=== PATIENT | female | born 1955 | race Caucasian/White ===

== ENCOUNTER 2019-11-16 19:30 | Inpatient (IN) ==
[2019-11-16] MEDS ORDERED: TRAMADOL HCL 50 MG TABLET PO PRN (22:43)
[2019-11-16] MEDS ORDERED: PROMETHAZINE HCL 12.5 MG in SODIUM CHLORIDE 0.9% 50 ML IV PRN (22:43)
[2019-11-16] MEDS ORDERED: MoRPHine SULFATE 4 MG/ML 1 ML CARP\\VIAL IV PRN (22:43)
[2019-11-16] MEDS ORDERED: ACETAMINOPHEN 325 MG TAB PO PRN (22:43)
--- NOTE | 2019-11-16 22:45 | History & Physical Report ---
Date of Service November 16, 2019 Assessment & Plan (1) Choledocholithiasis: No sepsis for now Bronchial asthma, stable disease GMF Hold off on antibiotics for now GI consult RE choledocholithiasis N.p.o. until patient seen by GI May need Surgery consultation during confinement pending GI eval for possible cholecystectomy. DVT prophylaxis. SCDs Full code Text document was generated using [employer] voice recognition software. It may contain grammatical or spelling errors. Kindly contact undersigned for clarification of any documentation item in question. Admission and Anticipated Discharge Date Admission Date: November 16, 2019 History of Present Illness Chief Complaint: Choledocholithiasis Primary Care Provider: Dr. Chapman ([facility]) History obtained from patient and records. Medical history significant for cholelithiasis, asthma/allergic rhinitis. Last night close to midnight patient noted achy epigastric discomfort and increased abdominal distention with nausea, no emesis. Some chills as per patient. Urine noted to be very yellow. No chest pain, no S OB. In retrospect, patient recalls short-lived episode last month. Worsening symptoms today. Patient seen at [facility] emergency room. LFTs noted to be high. CT abdomen pelvis showed choledocholithiasis with CBD dilatation. Patient transferred to [facility] for GI services. 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 Allergies Allergy/AdvReac Type Severity Reaction Status Date / Time egg Allergy Unknown Verified 11/16/19 23:01 Penicillins Allergy Unknown Verified 11/16/19 23:01 tree and shrub pollen AdvReac Unknown Verified 11/16/19 23:02 Past Med/Surg History Surgical History (Updated 11/16/19 @ 22:37 by Loretta Dotson RN) History of endoscopic sinus surgery History of hysterectomy History of tonsillectomy Social History Preferred Language: Cambodian Communication Ability: Effective Breakfast Bar Attendant Required: No Beliefs That Will Affect Care: None Current Living Situation: Alone Other Information That Helps Us Care for You: No Feels Safe at Home: Yes Safety Concerns: Feels Safe At This Time Smoking Status: Never smoker Second Hand Exposure: No ; Tobacco Cessation E ducation Requested by Patient: No Hx Alcohol Use: No Hx Substance Use: No Review of Systems Review of Systems: As per HPI, all 10 systems reviewed, all other ROS negative Physical Exam Physical Exam: GENERAL: Comfortable, pleasant, looks younger for stated age, no respiratory distress SKIN: Normal color, warm HEENT: Velarde palpebral conjunctivae, no ptosis, dry buccal mucosa NECK : Supple, no tenderness CHEST : CTA, no tenderness HEART : RRR, no obvious murmurs ABDOMEN: Abdominal distention, minimal epigastric tenderness EXTREMITIES : No LE swelling/tenderness, no other conspicuous deformities noted NEUROLOGIC : Coherent, no facial asymmetry, no other gross focality Results & Data Results & Data ([facility]) Vital Signs (Past 12 Hours) Vital Signs Temp Pulse Resp BP Pulse Ox 11/16/19 22:15 36.8 C 80 18 113/73 99 Laboratory Results ROSIO Zazueta lab work 11/15 Hemoglobin 13.3, hematocrit 38.6, WBC 7, platelets 307 Sodium 142, potassium 4.2, chloride 110, CO2 27, BUN 10, creatinine 0.08, glucose 108 Lactic acid 1.2, AST 1459, ALT 1037, alk phos 159, lipase 116, total bilirubin 2.6 UA: Yellow, bilirubin +1, negative ketones, +1 urobilinogen, WBC 0-1, RBC 3-10 Diagnostic Findings ROSIO Zazueta (11/15) CT abdomen pelvis: Cholelithiasis with top normal to mildly dilated CBD w 4 mm calculus. Periportal lucency within liver which can be seen with passive hepatic congestion, hepatitis, cholangitis. Small hepatic cysts. Sigmoid diverticulosis without diverticulitis EKG as per my interpretation: Rate 60, NSR, LAD, LAFB, no ischemia.
[2019-11-16] MEDS ORDERED: ALBUT/IPRATROP 3MG/0.5MG NEB 3 ML VIAL NEB PRN (22:53)
[2019-11-16] MEDS: LACTATED RINGER'S 1,000 ML IV SCH (22:59)
[2019-11-17 05:38] LABS: Basophils # (auto) 0.01 K/uL (0-0.2); Basophils % (auto) 0.2 %; Eosinophils # (auto) 0.05 K/uL (0-0.5); Eosinophils % (auto) 1.1 %; Hematocrit (blood only) 36.5 % (37-47); Hemoglobin 12.8 g/dL (12.0-16.0); Immature Granulocytes # (auto) 0.01 K/uL (0.00-0.02); Immature Granulocytes % (auto) 0.2 %; Lymphocytes # (auto) 0.89 K/uL (1.2-3.4); Mean Corpuscular Hemoglobin 28.4 pg (25-34); Mean Corpuscular Hgb Conc 35.1 g/dL (32-36); Mean Corpuscular Volume 80.9 fL (80-100); Mean Platelet Volume 9.5 fL (7.4-10.4); Monocytes # (auto) 0.23 K/uL (0.11-0.59); Monocytes % (auto) 5.2 %; Neutrophils # (auto) 3.27 K/uL (1.4-6.5); Neutrophils % (auto) 73.3 %; Platelet Count 298 K/uL (130-400); RDW Coefficient of Variation 14.7 % (11.5-14.5); RDW Standard Deviation 43.4 fL (36.4-46.3); Red Blood Count 4.51 M/uL (4.2-5.4); White Blood Count 4.46 K/uL (4.8-10.8)
[2019-11-17 06:04] LABS: Albumin Level 3.2 gm/dl (3.4-5.0); BUN Creatinine Ratio 8.5 (10-20); Calcium 8.9 mg/dl (8.5-10.1); Creatinine Clr Calc Pharmacy 69.4 ml/min; Est GFR (African American) 110.3; Est GFR (Non-African American) 95.1; Potassium 3.9 mmol/L (3.5-5.1); Prothrombin Time 10.9 Seconds (9.0-12.0)
[2019-11-17 06:07] LABS: Albumin Globulin Ratio 1.1 (0.9-2); Bilirubin,Total 0.5 mg/dl (0.2-1); Total Protein 6.2 gm/dl (6.4-8.2)
[2019-11-17] MEDS ORDERED: INDOMETHACIN 50 MG SUPP PR SCH (08:16)
--- NOTE | 2019-11-17 08:50 | Gastrointestinal Consultation ---
Date of Consultation November 17, 2019 Assessment & Plan (1) Choledocholithiasis: (2) Cholelithiasis: Pt is a 63 y/o female transferred from [facility] w symptoms of chills, nausea, abd discomfort & bloating; upon eval noted to have elevated LFTs and CT evidence of cholelithiasis, choledocholithiasis w intrahepatic and CBD dilations. - Keep NPO; IVF hydration - Plan for ERCP in OR by Dr. Sherman today - Indomethacin 100mg ND pre med to prevent pancreatitis - Surgery Consulted (spoke w Dr. Sweeney) to eval for possible cholecystectomy tandem in OR after ERCP procedure Supervising Physician Co-Signing Physician Notes I performed a history and physical examination of the patient today, including specifically on physical exam - soft abdomen. I have discussed the patient's management with the advanced practitioner. Please refer to the nurse practitioner's note for the documented findings and plan of care. Patient with choledocholithiasis and suspected cholangitis. Urgent case. ERCP today. History of Present Illness Reason for Consultation: Choledocholithiasis Requesting Physician: Dr. Glen Alvarez Attending Physician: Dr. Michelle Sherman History of Present Illness Pt is a 63 y/o female, transferred from [facility] for ERCP evaluation. She presented there w symptoms of chills, abd discomfort, bloating, nausea w/o vomiting. She denies any fevers. On evaluation, noted LFTs were up: Tbili 2.6, AST 1400, ALT 1000, Alk phose 157. Normal lipase and lactic acid. CT abd/pelvis w signs of cholelithiasis, choledocholithasis - 4mm CBD stone w intrahepatic, CBD dilation of 7mm. She was transferred to [facility] for further eval and advancement of care. She remains afebrile and w/o leukocytosis, not hypotensive or tachycardic. Abd discomfort and nausea improved. Denies dark urine or jaundi ce. Last BM yesterday, black per her report. Repeat LFTs: Tbili 0.5, AST 578, ALT 786, Alk phose 150. Allergies Allergy/AdvReac Type Severity Reaction Status Date / Time egg Allergy Unknown Verified 11/16/19 23:01 Penicillins Allergy Unknown Verified 11/16/19 23:01 tree and shrub pollen AdvReac Unknown Verified 11/16/19 23:02 Patient History Medical History (Updated 11/17/19 @ 09:20 by Lucio Olivares DO) Asthma Surgical History History of endoscopic sinus surgery History of hysterectomy History of tonsillectomy Social History Preferred Language: Romansh Communication Ability: Effective Manager Clinical Required: No Beliefs That Will Affect Care: None Current Living Situation: Alone Other Information That Helps Us Care for You: No Feels Safe at Home: Yes Safety Concerns: Feels Safe At This Time Smoking Status: Never smoker Second Hand Exposure: No ; Tobacco Cessation Education Requested by Patient: No Hx Alcohol Use: No Hx Substance Use: No Review of Systems Review of Systems: All systems reviewed & are unremarkable except as noted in HPI & below Physical Exam Constitutional: WD/WN, vitals as above well groomed, cooperative and comfortable Eyes: PERRL, conjunctivae normal, anicteric sclerae ENMT: external ear and nose normal, oropharynx normal Respiratory: normal respiratory effort, lungs clear to auscultation Cardiovascular: RRR, no murmur, no edema Gastrointestinal (Abdomen): Inspection/Auscultation: normal bowel sounds Percussion/Palpation: + abdomen tender (generalized) and abdomen soft Skin: no rashes, warm and dry no jaundice Psychiatric: A+Ox3, euthymic affect Lymphatic: no lymphedema Results & Data ([facility]) Vital Signs (Past 12 Hours) Vital Signs Temp Pulse Pulse Resp BP Pulse Ox 11/17/19 07:54 36.6 C 71 18 110/72 96 11/16/19 23:30 36.5 C 73 16 117/75 99 11/16/19 22:15 36.8 C 80 18 113/73 99
[2019-11-17] MEDS ORDERED: ONDANSETRON INJ 2 MG/ML 2 ML VIAL ONE (09:02)
[2019-11-17] MEDS ORDERED: DEXAMETHASONE SOD INJ 4 MG/ML VIAL ONE (09:02)
[2019-11-17] MEDS ORDERED: PROPOFOL IV EMULSION 10 MG/ML 20 ML VIAL IV ONE (09:02)
[2019-11-17] MEDS ORDERED: LIDOCAINE HCL 2% 2 ML VIAL/AMP(20MG/ML) INFIL ONE (09:02)
[2019-11-17] MEDS ORDERED: fentaNYL citrate 100 MCG/2 ML VIAL ONE (09:03)
[2019-11-17] MEDS ORDERED: ePHEDrine sulfate 50 MG/ML AMP IV PRN (09:03)
[2019-11-17] MEDS ORDERED: fentaNYL citrate 100 MCG/2 ML VIAL IV PRN (09:03)
[2019-11-17] MEDS ORDERED: ATROPINE SULFATE 0.1 MG/ML 10ML SYR IV PRN (09:03)
[2019-11-17] MEDS ORDERED: ONDANSETRON INJ 2 MG/ML 2 ML VIAL IV PRN (09:03)
[2019-11-17] MEDS ORDERED: MIDAZOLAM HCL 1 MG/ML 2ML VIAL ONE (09:03)
--- NOTE | 2019-11-17 09:03 | Anesthesiology Consultation ---
Date of Service November 17, 2019 Assessment & Plan (1) Encounter for pre-operative examination: Chart Review Chart Review: Acceptable Risk for Surgery Consults Requested none ASA ASA2 Proposed Anesthesia Anesthesia Type: General Risk / Benefits Reviewed With: PT / POA / Parent / Guardian, Accepts Plan and Informed Consent Obtained History Surgery Operation Date: 11/17/19 07:00 Proposed Procedures p Endoscopic Retrograde Cholangiopancreatogram - Michelle Sherman MD Height/Weight Height: 5 ft 1 in Weight: 56.2 kg Allergies Allergy/AdvReac Type Severity Reaction Status Date / Time egg Allergy Unknown Verified 11/16/19 23:01 Penicillins Allergy Unknown Verified 11/16/19 23:01 tree and shrub pollen AdvReac Unknown Verified 11/16/19 23:02 Medications Active Medications Generic Name Dose Route Start Last Admin Trade Name Freq PRN Reason Stop Dose Admin Lactated Ringer's 1,000 mls @ 80 mls/hr 11/16/19 23:00 11/16/19 22:59 Lr IV 12/16/19 22:59 80 mls/hr .[id number] KRISTEN Administration NPO Date Last Intake of Fluids: 11/16/19 Time Last Intake of Fluids: 11:59 Date Last Intake of Solids: 11/16/19 Time Last Intake of Solids: 11:59 Past Medical History Medical History (Updated 11/17/19 @ 09:20 by Lucio Olivares DO) Asthma Exercise / Class Metabolic Activity II 4-5 Yardwork/Stairs/Walk up hill Past Surgical History Surgical History History of endoscopic sinus surgery History of hysterectomy History of tonsillectomy Past Anesthesia History No Hx of Anesthesia Complications and No Family Hx of Anesthesia Complications History of PONV No Hx of PONV and No Hx of Motion Sickness Social History Smoking Status: Never smoker Hx Alcohol Use: No Hx Substance Use: No Physical Exam Vital Signs Last Vital Signs Temp 98.1 F 11/17/19 09:08 Pulse 62 11/17/19 09:08 Resp 16 11/17/19 09:08 BP 118/60 11/17/19 09:08 Pulse Ox 98 11/17/19 09:08 ENMT Mouth: + loose teeth Thyromental Distance: > or= 3.5 Finger Breadths Mallampati Class: III Neck normal visual inspection Respiratory normal respiratory effort Auscultation: lungs clear to auscultation bilaterally Cardiovascular Rate/Rhythm: regular rate and regular rhythm Testing Laboratory Results 11/17/19 05:08 11/17/19 05:08 PT 10.9 Seconds (9.0-12.0) 11/17/19 05:08 INR 1.0 (0.9-1.1) 11/17/19 05:08 Electrocardiogram Date: 11/16/19 Rate 60, NSR, LAD, LAFB, no ischemia (per hospitalist)
--- NOTE | 2019-11-17 09:32 | Hospitalist Progress Note ---
Date of Service November 17, 2019 Assessment & Plan (1) Choledocholithiasis: No sepsis on admission, Abx were not started GI consulted RE choledocholithiasis Pt is now s/p ERCP w/choledocholithiasis removal, biliary sphincterectomy, placements of biliary and pancreatic stents (11/17/2019) Tolerated procedure well - trend LFTs - KUB in 3-4 weeks to check for pancreatic stent migration (ordered under [facility] system) - Repeat ERCP in 2 month's time to remove biliary stent (GI schedulers will contact her) - Avoid NSAIDs or ASA 5 days after biliary sphincterectomy General surgery consulted for lap cholecystectomy (Dr. Sweeney). Bronchial asthma - stable disease - pt is in noresp. distress - will cont. to monitor DVT prophylaxis. SCDs Full code Admission and Anticipated Discharge Date Admission Date: November 16, 2019 Subjective Pt is a 63 y/o female transferred from [facility] there significant for elevated LFTs and CT evidence of cholelithiasis, choledocholithiasis w intrahepatic and CBD dilations, concern for cholangitis. GI was consulted and evaluate the patient. Patient is sitting up in bed, in no acute distress. She is now s/p ERCP w/ choledocholithiasis removal, biliary sphincterectomy, placements of biliary and pancreatic stents. Currently denies any fevers, chills, chest pain, shortness of breath, she has mild epigastric and right upper quadrant abdominal pain (says it is much improved now). Denies any nausea or vomiting. Review of Systems Review of Systems: All systems reviewed & are unremarkable except as noted in HPI & below Constitutional: no fever and no chills Respiratory: no cough and no dyspnea Cardiovascular: no chest pain, no palpitations and no edema Gastrointestinal: + abdominal pain (much improved); no nausea and no vomiting Physical Exam Physical Exam: GENERAL: Elderly female, appears younger than stated age, sitting up in bed, in no acute distress HEENT: Normocephalic, atraumatic, EOMI, PERRL, moist mucous membranes NECK : Supple, no tenderness CHEST : CTAB, no wheezing, rhonchi or crackles HEART : RRR, no obvious murmurs ABDOMEN: + bowel sounds, mild epigastric/ RUQ tenderness to palpation, soft EXTREMITIES : No LE swelling/tenderness, moves all extremities spontaneously SKIN: warm, dry, well perfused NEUROLOGIC : Alert and oriented x3, speech fluent, no facial asymmetry, moves all extremities spontaneously Results & Data Results & Data ([facility]) Vital Signs (Past 12 Hours) Vital Signs Temp Pulse Pulse Resp BP Pulse Ox 11/17/19 09:08 36.7 C 62 16 118/60 98 11/17/19 07:54 36.6 C 71 18 110/72 96 11/16/19 23:30 36.5 C 73 16 117/75 99 11/16/19 22:15 36.8 C 80 18 113/73 99 Laboratory Results 11/17/19 11/17/19 11/17/19 Range/Units 05:08 05:08 05:08 WBC 4.46 L (4.8-10.8) K/uL RBC 4.51 (4.2-5.4) M/uL Hgb 12.8 (12.0-16.0) g/dL Hct 36.5 L (37-47) % MCV 80.9 (80-100) fL MCH 28.4 (25-34) pg MCHC 35.1 (32-36) g/dL RDW Std Deviation 43.4 (36.4-46.3) fL RDW Coeff of Frank 14.7 H (11.5-14.5) % Plt Count 298 (130-400) K/uL MPV 9.5 (7.4-10.4) fL Immature Gran % (Auto) 0.2 % Neut % (Auto) 73.3 % Lymph % (Auto) 20.0 % [place] % (Auto) 5.2 % Eos % (Auto) 1.1 % Baso % (Auto) 0.2 % Immature Gran # (Auto) 0.01 (0.00-0.02) K/uL Neut # (Auto) 3.27 (1.4-6.5) K/uL Lymph # (Auto) 0.89 L (1.2-3.4) K/uL [place] # (Auto) 0.23 (0.11-0.59) K/uL Eos # (Auto) 0.05 (0-0.5) K/uL Baso # (Auto) 0.01 (0-0.2) K/uL PT 10.9 (9.0-12.0) Seconds INR 1.0 (0.9-1.1) Sodium 142 (136-145) mmol/L Potassium 3.9 (3.5-5.1) mmol/L Chloride 111 H (98-107) mmol/L Carbon Dioxide 24 (21-32) mmol/L Anion Gap 7.0 (3-11) BUN 5 L (7-18) mg/dl Creatinine 0.61 (0.6-1.2) mg/dl Est Cr Clr Drug Dosing 69.4 ml/min Est GFR ( Amer) 110.3 Est GFR (Non-Af Amer) 95.1 BUN/Creatinine Ratio 8.5 L (10-20) Glucose 91 (70-99) mg/dl Calcium 8.9 (8.5-10.1) mg/dl Total Bilirubin 0.5 (0.2-1) mg/dl AST 578 H (15-37) U/L ALT 786 H (12-78) U/L Alkaline Phosphatase 150 H (45-117) U/L Total Protein 6.2 L (6.4-8.2) gm/dl Albumin 3.2 L (3.4-5.0) gm/dl Globulin 3.0 (2.5-4.0) gm/dl Albumin/Globulin Ratio 1.1 (0.9-2) Medications Administered Current Inpatient Medications Acetaminophen (Tylenol) 325 mg PO Q6H PRN PRN Reason: Mild Pain Stop: 12/16/19 22:42 Albuterol (Duoneb) 3 ml NEB Q2H PRN PRN Reason: Wheezing Stop: 12/16/19 22:52 Atropine Sulfate (Atropine Sulfate) 0.5 mg IV Q1M PRN PRN Reason: PACU Use-HR<40 &/or Bradycardi Stop: 11/17/19 17:03 Ephedrine Sulfate (Ephedrine Sulfate) 5 mg IV Q5M PRN PRN Reason: PACU Use Only-SBP<90 mmHg Stop: 11/17/19 17:03 Fentanyl Citrate (Fentanyl Citrate) 25 mcg IV Q5M PRN PRN Reason: PACU Use Only-Pain Stop: 11/17/19 17:03 Fluticasone Propionate (Flonase) 2 sprays NA DAILY KRISTEN Stop: 12/17/19 08:59 Promethazine HCl 12.5 mg/ (Sodium Chloride) 50.5 mls @ 202 mls/hr IV Q6H PRN PRN Reason: Nausea And Vomiting Stop: 12/16/19 22:42 Lactated Ringer's (Lr) 1,000 mls @ 80 mls/hr IV .[id number] [facility] Stop: 12/16/19 22:59 Last Admin: 11/16/19 22:59 Dose: 80 mls/hr Documented by: Indomethacin (Indocin) 100 mg MA TODAY@0816 [facility] Stop: 11/17/19 15:00 Morphine Sulfate (Morphine Sulfate) 4 mg IV Q4H PRN PRN Reason: Pain Stop: 11/30/19 22:42 Multivitamins (Multivitamin Tab) 1 tab PO QAM [facility] Stop: 12/17/19 08:59 Ondansetron HCl (Zofran) 4 mg IV ONCE PRN PRN Reason: PACU Use Only-Nausea/Vomiting Stop: 11/17/19 17:03 Tramadol HCl (Ultram) 25 - 50 mg PO Q4H PRN PRN Reason: Pain Stop: 12/16/19 22:42
[2019-11-17] MEDS: FLUTICASONE PROPIONATE NA SPR 16 GM BTL SCH (09:37)
[2019-11-17] MEDS: MULTIVITAMIN TAB PO SCH (09:37)
[2019-11-17] MEDS ORDERED: SUCCINYLCHOLINE CHLORIDE 20 MG/ML 10 ML VIAL ONE (10:07)
[2019-11-17] MEDS ORDERED: INDOMETHACIN 50 MG SUPP PR PRN (10:23)
--- NOTE | 2019-11-17 10:25 | Operative Report ---
Post Operative Report Pre & Post Diagnosis Operation Date: 11/17/19 07:00 Pre-Op Diagnosis: GALLSTONES, ELEVATED LIVER EMZYMES Post-Op Diagnosis: GALLSTONES, ELEVATED LIVER EMZYMES I identified the patient and participated in the time-out.: Yes Procedure Operation Date: 11/17/19 07:00 Actual Procedures p Endoscopic Retrograde Cholangiopancreatogram(Not Applicable) - Michelle Sherman MD Surgeon Michelle Sherman MD Asphalt Machine Operator None Estimated Blood Loss 0 Findings See Below (CBD stone removed, CBD and PD stent placed) Specimens None Description of Procedure ERCP I attest to the content of the Intraoperative Record and any orders documented therein. Any exceptions are noted below.
--- NOTE | 2019-11-17 10:44 | Fluoroscopy Report ---
FL ERCP biliary ductal CLINICAL HISTORY: ERCP COMPARISON STUDY: Abdomen and pelvis CT 11/16/2019. FLUOROSCOPY TIME: 1 minute and 21 seconds. FINDINGS: 11 fluoroscopic spot images of the right upper quadrant demonstrate an endoscope at the sec ond portion of the duodenum with cannulation of the ampulla. Contrast was injected into the mildly di stended common bile duct. Filling defect within the common hepatic duct favors a stone. A balloon swe ep was performed. No additional filling defects identified. A common bile duct and main pancreatic du ct stents were placed and appear good position. Multiple small gallstones are noted. IMPRESSION: Fluoroscopy provided for ERCP with placement of common bile duct and main pancreatic duct stents. These appear in good position. ACT 112: Negative or not required by law. Electronically signed by: Amadeo Childs M.D. 11/17/2019 10:43 AM
--- NOTE | 2019-11-17 10:51 | GI REPORT ---
Patient Name: Roque Olsen Procedure Date: 11/17/2019 9:14 AM Date of : 1955 Admit Type: Inpatient Age: 63 Gender: Female Attending MD: Michelle Sherman MD Procedure: ERCP Providers: Michelle Sherman MD Referring MD: Lokesh Cintron M.d., Glen Alvarez Md, Jessica Deluna Md Indications: Abdominal pain of suspected biliary origin, Bile duct stone on Ultrasound, For therapy of bile duct stone(s), Elevated liver enzymes Medicines: Propofol per Anesthesia Complications: No immediate complications. Estimated Blood Loss: Estimated blood loss: none. Procedure: Pre-Anesthesia Assessment: - Prior to the procedure, a History and Physical was performed, and patient medications, allergies and sensitivities were reviewed. The patient's tolerance of previous anesthesia was reviewed. - The risks and benefits of the procedure and the sedation options and risks were discussed with the patient. All questions were answered and informed consent was obtained. - Patient identification and proposed procedure were verified prior to the procedure by the physician and the nurse. The procedure was verified in the procedure room. - Pre-procedure physical examination revealed no contraindications to sedation. After obtaining informed consent, the scope was passed under direct vision. Throughout the procedure, the patient's blood pressure, pulse, and oxygen saturations were monitored continuously. The Scope was introduced through the mouth, and advanced to the duodenum and used to inject contrast into the bile duct. The ERCP was accomplished without difficulty. The patient tolerated the procedure well. Findings: The public health policy analyst film was normal. The esophagus was successfully intubated under direct vision. The scope was advanced to a normal major papilla in the descending duodenum without detailed examination of the pharynx, larynx and associated structures, and upper GI tract. The upper GI tract was grossly normal. The major papilla was small and appeared stenotic. The ventral pancreatic duct was inadvertently cannulated with the short-nosed traction sphincterotome and guidewire without any complications. The wire was kept in place to assist in biliary ductal cannulation. After multiple attempts, could not cannulate with double wire technique hence a transpancreatic septotomy was made with a monofilament Fusion OMNI sphincterotome using ERBE electrocautery. There was no post-sphincterotomy bleeding. A 0.035 inch straight standard wire was passed into the biliary tree. The Fusion OMNI sphincterotome was passed over the guidewire and the bile duct was then deeply cannulated. Contrast was injected. I personally interpreted the bile duct images. Ductal flow of contrast was adequate. Image quality was adequate. Contrast extended to the main bile duct. The biliary orifice was stenotic. This appeared benign. The main bile duct was mildly dilated. The largest diameter was 10 mm. The lower third of the main bile duct contained one stone. Opacification of the cystic duct and gallbladder was seen. The gallbladder contained multiple stones. There was mild external compression on the upper third of the main bile duct related to the large gallstones in the gallbladder neck. The biliary sphincterotomy was extended with a monofilament traction (standard) sphincterotome using ERBE electrocautery. There was no post-sphincterotomy bleeding. The biliary tree was swept with a 15 mm balloon starting at the bifurcation. Two stones were removed. No stones remained. One 5 Fr by 9 cm plastic pancreatic stent with a single external pigtail and no internal flaps was placed into the ventral pancreatic duct. Clear fluid flowed through the stent. The stent was in good position. One 10 Fr by 9 cm plastic biliary stent with a single external flap and a single internal flap was placed into the common bile duct and extended up to the common hepatic duct. Bile flowed through the stent. The stent was in good position. Indomethacin 100 mg was given via suppository to decrease the risk of post-ERCP pancreatitis (PEP). Impression: - Choledocholithiasis was found. Complete removal was accomplished by biliary sphincterotomy and balloon extraction. 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 - One plastic pancreatic stent was placed into the ventral pancreatic duct to decrease the risk of post-ERCP pancreatitis (PEP). - One plastic biliary stent was placed into the common bile duct and extended to the common hepatic duct. Recommendation: - [facility]. - Avoid aspirin and nonsteroidal anti-inflammatory medicines for 5 days. - Refer to a surgery for cholecystectomy.. - Repeat ERCP in 2 months to remove stent. - Obtain KUB in 3 weeks to check for migration of the PD stent. Michelle Sherman MD 11/17/2019 10:50:54 AM This report has been signed electronically. Note Initiated On: 11/17/2019 9:14 AM Number of Addenda: 0 I attest to the content of the Intraoperative Record and orders documented therein, exceptions below {[id number]}
[2019-11-17] MEDS: CIPROFLOXACIN / D5W 400 MG/200 ML BAG IV SCH ×2 (11:40→22:02)
[2019-11-17] MEDS: LACTATED RINGER'S 1,000 ML IV SCH ×2 (11:40→23:21)
--- NOTE | 2019-11-17 11:47 | Anesthesiology Progress Note ---
Date of Service November 17, 2019 Anesthesia Post Procedure Vital Signs Vital Signs: Temp Pulse Pulse Pulse Resp BP Pulse Ox 11/17/19 11:26 97.7 F 64 16 147/75 H 96 11/17/19 11:10 97.5 F L 63 16 150/73 H 95 11/17/19 11:00 68 16 144/80 H 96 11/17/19 10:54 97.2 F L 83 16 152/85 H 98 11/17/19 09:08 98.1 F 62 16 118/60 98 11/17/19 07:54 97.9 F 71 18 110/72 96 11/16/19 23:30 97.7 F 73 16 117/75 99 11/16/19 22:15 98.2 F 80 18 113/73 99 Pain Intensity Abdomen: Pain Intensity: 3 Transfer of Care Handoff Completed per policy Notes Mental Status: alert / awake / arousable and participated in evaluation Patient Amnestic to Procedure: Yes Nausea / Vomiting: adequately controlled Pain: adequately controlled Airway Patency, RR, SpO2: stable & adequate BP & HR: stable & adequate Hydration State: stable & adequate Anesthetic Complications: no major complications apparent and Pt Satisfied with anesthetic care
--- NOTE | 2019-11-17 16:51 | Surgery Consultation ---
Date of Consultation November 17, 2019 Assessment & Plan (1) Cholelithiasis: pt is a 63 year-old female who was admitted to hospital for choledocholithiasis, acute cholecystitis with cholelithiasis, IMP: S/P ERCP, choledocholithiasis, acute cholecystitis, , cholelithiasis, Plan, I recommend to do laparoscopic cholecystectomy, possible open or cholangiogram, at 11:40am 11/18/2019, D/W benefits, risks and alternatives of the surgery, the risks - infection, bleeding, injury CBD, pt understood, she agrees with the surgery, I answered all questions, clear diet now, NPO after MN, (2) Acute cholecystitis due to biliary calculus: History of Present Illness Attending Physician: Glen Alvarez MD History of Present Illness Chief Complaint: Choledocholithiasis Primary Care Provider: Dr. Chapman ([facility]) History obtained from patient and records. Medical history significant for cholelithiasis, asthma/allergic rhinitis. Last night close to midnight patient noted achy epigastric discomfort and increased abdominal distention with nausea, no emesis. Some chills as per patient. Urine noted to be very yellow. No chest pain, no S OB. In retrospect, patient recalls short-lived episode last month. Worsening symptoms today. Patient seen at [facility] emergency room. LFTs noted to be high. CT abdomen pelvis showed choledocholithiasis with CBD dilatation. Patient transferred to [facility] for GI services. 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 Allergies Allergy/AdvReac Type Severity Reaction Status Date / Time egg Allergy Unknown Verified 11/16/19 23:01 Penicillins Allergy Unknown Verified 11/16/19 23:01 tree and shrub pollen AdvReac Unknown Verified 11/16/19 23:02 Past Med/Surg History Surgical History (Updated 11/16/19 @ 22:37 by Loretta Dotson RN) History of endoscopic sinus surgery History of hysterectomy History of tonsillectomy Social History Preferred Language: Guatemalan Communication Ability: Effective Marketing Account Executive Required: No Beliefs That Will Affect Care: None Current Living Situation: Alone Other Information That Helps Us Care for You: No Feels Safe at Home: Yes Safety Concerns: Feels Safe At This Time Smoking Status: Never smoker Second Hand Exposure: No ; Tobacco Cessation Education Requested by Patient: No Hx Alcohol Use: No Hx Substance Use: No Allergies Allergy/AdvReac Type Severity Reaction Status Date / Time egg Allergy Unknown Verified 11/16/19 23:01 Penicillins Allergy Unknown Verified 11/16/19 23:01 tree and shrub pollen AdvReac Unknown Verified 11/16/19 23:02 Patient History Medical History (Updated 11/17/19 @ 16:53 by Ranjith Sweeney MD) Asthma Surgical History History of endoscopic sinus surgery History of hysterectomy History of tonsillectomy Social History Preferred Language: Guatemalan Communication Ability: Effective Marketing Account Executive Required: No Beliefs That Will Affect Care: None Current Living Situation: Alone Other Information That Helps Us Care for You: No Feels Safe at Home: Yes Safety Concerns: Feels Safe At This Time Smoking Status: Never smoker Second Hand Exposure: No ; Tobacco Cessation Education Requested by Patient: No Hx Alcohol Use: No Hx Substance Use: No Review of Systems Review of Systems: All systems reviewed & are unremarkable except as noted in HPI & below Constitutional: as per Subjective / HPI Eyes: as per Subjective / HPI Ear, Nose, Mouth, Throat: as per Subjective / HPI Respiratory: as per Subjective / HPI Cardiovascular: as per Subjective / HPI Gastrointestinal: as per Subjective / HPI gallstone Genitourinary: as per Subjective / HPI Musculoskeletal: as per Subjective / HPI Integumentary: as per Subjective / HPI Neurologic: as per Subjective / HPI Psychiatric: as per Subjective / HPI Endocrine: as per Subjective / HPI Hematologic / Lymphatic: as per Subjective / HPI Physical Exam Constitutional: WD/WN, vitals as above well developed and well nourished Eyes: PERRL, conjunctivae normal, anicteric sclerae ENMT: external ear and nose normal, oropharynx normal Neck: trachea midline, no thyromegaly Respiratory: normal respiratory effort, lungs clear to auscultation normal respiratory effort Cardiovascular: RRR, no murmur, no edema Rate/Rhythm: regular rate and regular rhythm Heart Sounds: normal S1 and normal S2 Gastrointestinal (Abdomen): normal bowel sounds, soft, nontender, no hepatosplenomegaly Percussion/Palpation: + abdomen tender and abdomen soft mild tenderness at RUQ, no distend, no rebound pain, Musculoskeletal: no cyanosis or clubbing, extremities motor strength 5/5 Skin: no rashes, warm and dry Neurologic: patellar DTR's 2+ bilat, sensation intact Psychiatric: Orientation: alert and oriented x 3 Results & Data Vital Signs (Past 12 Hours) Vital Signs Temp Pulse Pulse Resp BP Pulse Ox 11/17/19 15:20 36.3 C L 60 16 113/67 96 11/17/19 14:40 36.5 C 61 18 110/66 97 11/17/19 13:23 66 18 121/67 98 11/17/19 12:23 36.5 C 58 L 18 120/70 94 11/17/19 11:55 36.4 C L 61 16 113/68 95 11/17/19 11:26 36.5 C 64 16 147/75 H 96 11/17/19 11:10 36.4 C L 63 16 150/73 H 95 11/17/19 11:00 68 16 144/80 H 96 11/17/19 10:54 36.2 C L 83 16 152/85 H 98 11/17/19 09:08 36.7 C 62 16 118/60 98 11/17/19 07:54 36.6 C 71 18 110/72 96 Laboratory Results Abnormal lab results 11/17/19 11/17/19 Range/Units 05:08 05:08 WBC 4.46 L (4.8-10.8) K/uL Hct 36.5 L (37-47) % RDW Coeff of Frank 14.7 H (11.5-14.5) % Lymph # (Auto) 0.89 L (1.2-3.4) K/uL Chloride 111 H (98-107) mmol/L BUN 5 L (7-18) mg/dl BUN/Creatinine Ratio 8.5 L (10-20) AST 578 H (15-37) U/L ALT 786 H (12-78) U/L Alkaline Phosphatase 150 H (45-117) U/L Total Protein 6.2 L (6.4-8.2) gm/dl Albumin 3.2 L (3.4-5.0) gm/dl Diagnostic Findings [facility], [place] GI REPORT Signed Patient: ROQUE DUDLEY EAdmit Date: 11/16/19 MR#: [id number] Phy: Glen Alvarez MD Acct ID:[id number] Phy: PCP,NO Date: 1955Fam Phy: Age: 63Location: 3E Sex: F Room/Bed: [facility] Ref Phy: Lokesh Cintron MD cc: ~ DICTATED BY: Michelle Sherman M.D. Patient Name: Roque Dudley Procedure Date: 11/17/2019 9:14 AM Date of : 1955 Admit Type: Inpatient Age: 63 Gender: Female Attending MD: Michelle Sherman MD Procedure: ERCP Providers: Michelle Sherman MD Referring MD: Lokesh Cintron M.d., Glen Alvarez Md, Jessica Deluna Md Indications: Abdominal pain of suspected biliary origin, Bile duct stone on Ultrasound, For therapy of bile duct stone(s), Elevated liver enzymes Medicines: Propofol per Anesthesia Complications: No immediate complications. Estimated Blood Loss: Estimated blood loss: none. Procedure: Pre-Anesthesia Assessment: - Prior to the procedure, a History and Physical was performed, and patient medications, allergies and sensitivities were reviewed. The patient's tolerance of previous anesthesia was reviewed. - The risks and benefits of the procedure and the sedation options and risks were discussed with the patient. All questions were answered and informed consent was obtained. - Patient identification and proposed procedure were verified prior to the procedure by the physician and the nurse. The procedure was verified in the procedure room. - Pre-procedure physical examination revealed no contraindications to sedation. After obtaining informed consent, the scope was passed under direct vision. Throughout the procedure, the patient's blood pressure, pulse, and oxygen saturations were monitored continuously. The Scope was introduced through the mouth, and advanced to the duodenum and used to inject contrast into the bile duct. The ERCP was accomplished without difficulty. The patient tolerated the procedure well. Findings: The jigger operator film was normal. The esophagus was successfully intubated under direct vision. The scope was advanced to a normal major papilla in the descending duodenum without detailed examination of the pharynx, larynx and associated structures, and upper GI tract. The upper GI tract was grossly normal. The major papilla was small and appeared stenotic. The ventral pancreatic duct was inadvertently cannulated with the short-nosed traction sphincterotome and guidewire without any complications. The wire was kept in place to assist in biliary ductal cannulation. After multiple attempts, could not cannulate with double wire technique hence a transpancreatic septotomy was made with a monofilament Fusion OMNI sphincterotome using ERBE electrocautery. There was no post-sphincterotomy bleeding. A 0.035 inch straight standard wire was passed into the biliary tree. The Fusion OMNI sphincterotome was passed over the guidewire and the bile duct was then deeply cannulated. Contrast was injected. I personally interpreted the bile duct images. Ductal flow of contrast was adequate. Image quality was adequate. Contrast extended to the main bile duct. The biliary orifice was stenotic. This appeared benign. The main bile duct was mildly dilated. The largest diameter was 10 mm. The lower third of the main bile duct contained one stone. Opacification of the cystic duct and gallbladder was seen. The gallbladder contained multiple stones. There was mild external compression on the upper third of the main bile duct related to the large gallstones in the gallbladder neck. The biliary sphincterotomy was extended with a monofilament traction (standard) sphincterotome using ERBE electrocautery. There was no post-sphincterotomy bleeding. The biliary tree was swept with a 15 mm balloon starting at the bifurcation. Two stones were removed. No stones remained. One 5 Fr by 9 cm plastic pancreatic stent with a single external pigtail and no internal flaps was placed into the ventral pancreatic duct. Clear fluid flowed through the stent. The stent was in good position. One 10 Fr by 9 cm plastic biliary stent with a single external flap and a single internal flap was placed into the common bile duct and extended up to the common hepatic duct. Bile flowed through the stent. The stent was in good position. Indomethacin 100 mg was given via suppository to decrease the risk of post-ERCP pancreatitis (PEP). Impression: - Choledocholithiasis was found. Complete removal was accomplished by biliary sphincterotomy and balloon extraction. 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 - One plastic pancreatic stent was placed into the ventral pancreatic duct to decrease the risk of post-ERCP pancreatitis (PEP). - One plastic biliary stent was placed into the common bile duct and extended to the common hepatic duct. Recommendation: - [facility] patient to [facility] for [facility] care. - Avoid aspirin and nonsteroidal anti-inflammatory medicines for 5 days. - Refer to a surgery for cholecystectomy.. - Repeat ERCP in 2 months to remove stent. - Obtain KUB in 3 weeks to check for migration of the PD stent. Michelle Sherman MD 11/17/2019 10:50:54 AM This report has been signed electronically. Note Initiated On: 11/17/2019 9:14 AM Number of Addenda: 0 I attest to the content of the Intraoperative Record and orders documented therein, exceptions below
[2019-11-18 06:59] LABS: Hematocrit (blood only) 35.4 % (37-47); Hemoglobin 12.4 g/dL (12.0-16.0); Mean Corpuscular Hemoglobin 28.6 pg (25-34); Mean Corpuscular Volume 81.6 fL (80-100); Mean Platelet Volume 9.6 fL (7.4-10.4); Platelet Count 306 K/uL (130-400); RDW Coefficient of Variation 14.5 % (11.5-14.5); RDW Standard Deviation 43.5 fL (36.4-46.3); Red Blood Count 4.34 M/uL (4.2-5.4); White Blood Count 9.55 K/uL (4.8-10.8)
[2019-11-18 07:15] LABS: Prothrombin Time 10.9 Seconds (9.0-12.0)
[2019-11-18 07:25] LABS: BUN Creatinine Ratio 11.4 (10-20); Calcium 8.7 mg/dl (8.5-10.1); Creatinine Clr Calc Pharmacy 66.1 ml/min; Est GFR (African American) 108.5; Est GFR (Non-African American) 93.6; Magnesium 1.9 mg/dl (1.8-2.4); Potassium 3.9 mmol/L (3.5-5.1)
[2019-11-18 07:26] LABS: Phosphorus 3.5 mg/dl (2.5-4.9)
[2019-11-18] MEDS: MULTIVITAMIN TAB PO SCH (07:56)
[2019-11-18] MEDS ORDERED: NEOSTIGMINE METHYLSULFATE 5 MG/5 ML SYR ONE (08:47)
[2019-11-18] MEDS ORDERED: PROPOFOL IV EMULSION 10 MG/ML 20 ML VIAL IV ONE (08:47)
[2019-11-18] MEDS ORDERED: ONDANSETRON INJ 2 MG/ML 2 ML VIAL ONE ×2 (08:47→10:56)
[2019-11-18] MEDS ORDERED: fentaNYL citrate 100 MCG/2 ML VIAL IV PRN (08:47)
[2019-11-18] MEDS ORDERED: GLYCOPYRROLATE 0.2 MG/ML VIAL ONE (08:47)
[2019-11-18] MEDS ORDERED: LABETALOL HCL IV 5 MG/ML 20ML IV PRN (08:47)
[2019-11-18] MEDS ORDERED: MIDAZOLAM HCL 1 MG/ML 2ML VIAL ONE (08:47)
[2019-11-18] MEDS ORDERED: ePHEDrine sulfate 50 MG/ML AMP IV PRN (08:47)
[2019-11-18] MEDS ORDERED: ONDANSETRON INJ 2 MG/ML 2 ML VIAL IV PRN (08:47)
[2019-11-18] MEDS ORDERED: fentaNYL citrate 100 MCG/2 ML VIAL ONE (08:47)
[2019-11-18] MEDS ORDERED: DEXAMETHASONE SOD INJ 4 MG/ML VIAL ONE (08:47)
[2019-11-18] MEDS ORDERED: MEPERIDINE HCL 25 MG/ML CARP/VIAL IV PRN (08:47)
[2019-11-18] MEDS ORDERED: HYDROmorphone INJ 1 MG/ML SYRINGE IV PRN (08:47)
[2019-11-18] MEDS ORDERED: ATROPINE SULFATE 0.1 MG/ML 10ML SYR IV PRN (08:47)
[2019-11-18] MEDS ORDERED: LIDOCAINE HCL 2% 2 ML VIAL/AMP(20MG/ML) INFIL ONE (08:47)
[2019-11-18] MEDS ORDERED: PHENYLEPHRINE 100MCG/ML 5ML SYR IV PRN (08:47)
--- NOTE | 2019-11-18 08:47 | Anesthesiology Consultation ---
Date of Service November 18, 2019 Assessment & Plan (1) Encounter for pre-operative examination: Chart Review Chart Review: Acceptable Risk for Surgery and Patient NOT seen in Pre Admission Testing Consults Requested none History Surgery Operation Date: 11/17/19 07:00 Proposed Procedures p Endoscopic Retrograde Cholangiopancreatogram - Michelle Sherman MD Operation Date: 11/18/19 11:40 Proposed Procedures p Laparoscopic Cholecystectomy - Ranjith Sweeney MD Height/Weight Height: 5 ft 1 in Weight: 56.2 kg Allergies Allergy/AdvReac Type Severity Reaction Status Date / Time egg Allergy Unknown Verified 11/16/19 23:01 Penicillins Allergy Unknown Verified 11/16/19 23:01 tree and shrub pollen AdvReac Unknown Verified 11/16/19 23:02 Medications Active Medications Generic Name Dose Route Start Last Admin Trade Name Freq PRN Reason Stop Dose Admin Fluticasone Propionate 2 sprays 11/17/19 09:00 11/17/19 09:37 Flonase NA 12/17/19 08:59 Not Given DAILY KRISTEN Promethazine HCl 12.5 mg/ 50.5 mls @ 202 mls/hr 11/16/19 22:43 11/18/19 02:29 Sodium Chloride IV 12/16/19 22:42 Infused Q6H PRN Infusion Nausea And Vomiting Lactated Ringer's 1,000 mls @ 80 mls/hr 11/16/19 23:00 11/17/19 23:21 Lr IV 12/16/19 22:59 80 mls/hr .[id number] KRISTEN Administration Ciprofloxacin 400 mg in 200 mls @ 100 mls/hr 11/17/19 11:00 11/18/19 00:03 Cipro IV 11/27/19 10:59 Infused Q12H KRISTEN Infusion Indomethacin 100 mg 11/17/19 10:23 11/17/19 10:[address] 12/17/19 10:22 100 mg ONCE PRN Administration Pain Multivitamins 1 tab 11/17/19 09:00 11/18/19 07:56 Multivitamin Tab PO 12/17/19 08:59 Not Given QAM KRISTEN NPO Date Last Intake of Fluids: 11/18/19 Time Last Intake of Fluids: 23:59 Date Last Intake of Solids: 11/18/19 Time Last Intake of Solids: 08:00 Past Medical History Medical History (Updated 11/18/19 @ 08:47 by Amadeo Brunner MD) Asthma Past Surgical History Surgical History (Updated 11/18/19 @ 08:47 by Amadeo Brunner MD) History of endoscopic sinus surgery History of ERCP History of hysterectomy History of tonsillectomy Social History Smoking Status: Never smoker Hx Alcohol Use: No Hx Substance Use: No Physical Exam Vital Signs Last Vital Signs Temp 37.2 C 11/18/19 07:36 Pulse 58 L 11/18/19 07:36 Resp 16 11/18/19 07:36 BP 117/62 11/18/19 07:36 Pulse Ox 97 11/18/19 07:36 Testing Laboratory Results 11/18/19 06:33 11/18/19 06:33 PT 10.9 Seconds (9.0-12.0) 11/18/19 06:33 INR 1.0 (0.9-1.1) 11/18/19 06:33 Electrocardiogram Date: 11/16/19 Rate 60, NSR, LAD, LAFB, no ischemia (per hospitalist)
[2019-11-18] MEDS ORDERED: LARYING-O-JET KIT (LTA) ONE ×2 (08:53→08:54)
[2019-11-18 08:58] LABS: Albumin Level 3.2 gm/dl (3.4-5.0); Bilirubin Direct 0.2 mg/dl (0-0.2); Bilirubin,Total 0.6 mg/dl (0.2-1); Total Protein 6.2 gm/dl (6.4-8.2)
[2019-11-18] MEDS ORDERED: BUPIVACAINE 0.5 % 5 MG/1 ML MPF 30ML VIAL ONE (09:20)
[2019-11-18] MEDS ORDERED: LIDOCAINE HCL 1% 20 ML VIAL ONE (09:20)
[2019-11-18] MEDS: FLUTICASONE PROPIONATE NA SPR 16 GM BTL SCH (09:21)
--- NOTE | 2019-11-18 09:24 | History & Physical Bridge Note ---
Date of Service November 18, 2019 History & Physical Bridge Note I have examined the patient, reviewed the History & Physical and in the interval since the performance of the History & Physical I have noted the following changes of clinical significance: no changes noted
--- NOTE | 2019-11-18 09:42 | Communication Note ---
Date of Service: November 18, 2019 GI note: Pt s/p ERCP on 11/17/2019 w choledocholithiasis removal, biliary sphincterectomy, placements of biliary and pancreatic stents. LFTs trending down. Pt having mild RUQ abd pain, last night did have an episode of emesis, none today. She is NPO, scheduled for lap sarwat in OR by Dr. Sweeney (Surgery). On exam: AAOx3, HRR, CTA lungs bilaterally, abd soft, mild TTP RUQ, no edema on legs. Plans: - Lap Sarwat by Surgery - Trend LFTs - KUB in 3-4 weeks to check for pancreatic stent migration (ordered under [facility] system) - Repeat ERCP in 2 month's time to remove biliary stent (GI schedulers will contact her) - Avoid NSAIDs or ASA 5 days after biliary sphincterectomy - Recall GI prn I have discussed the patient's management with the advanced practitioner. Please refer to the nurse practitioner's note for the documented findings and plan of care.
[2019-11-18] MEDS ORDERED: ePHEDrine sulfate 50 MG/ML SYR ONE (09:48)
[2019-11-18] MEDS ORDERED: BACITRACIN OINT 15 GM TUBE ONE (10:49)
[2019-11-18] MEDS: CIPROFLOXACIN / D5W 400 MG/200 ML BAG IV SCH ×2 (10:57→22:27)
--- NOTE | 2019-11-18 11:28 | Post Operative Brief Note ---
Immediate Post Op Note v1 Date of Surgery November 18, 2019 Pre & Post Diagnosis Operation Date: 11/17/19 07:00 Pre-Op Diagnosis: GALLSTONES, ELEVATED LIVER EMZYMES Post-Op Diagnosis: GALLSTONES, ELEVATED LIVER EMZYMES Operation Date: 11/18/19 11:40 Pre-Op Diagnosis: GALLSTONES, ELEVATED LIVER EMZYMES, Acute cholecystitis Post-Op Diagnosis: GALLSTONES, ELEVATED LIVER EMZYMES, Acute cholecystitis I identified the patient and participated in the time-out.: Yes Procedure Operation Date: 11/17/19 07:00 Actual Procedures p Endoscopic Retrograde Cholangiopancreatogram(Not Applicable) - Michelle Sherman MD Operation Date: 11/18/19 11:40 Actual Procedures p Laparoscopic Cholecystectomy(Not Applicable) - Ranjith Sweeney MD Surgeon Ranjith Sweeney MD [employer] Director [employer] surgical specialist Estimated Blood Loss 20 Findings Consistent with Post-Op Diagnosis Fluids 700ml Specimens gallbladder Anesthesia Type General Complications none Disposition Accompanied Patient To Recovery: Yes Disposition: Recovery Room Overlapping Procedure I was immediately available: during the entire case.
--- NOTE | 2019-11-18 12:26 | Anesthesiology Progress Note ---
Date of Service November 18, 2019 Anesthesia Post Procedure Vital Signs Vital Signs: Temp Pulse Resp BP Pulse Ox 11/18/19 12:20 24 L 24 123/66 99 11/18/19 12:10 74 20 124/66 99 11/18/19 12:00 36.3 C L 78 19 117/63 99 11/18/19 09:05 37.3 C 56 L 18 109/61 98 11/18/19 07:36 37.2 C 58 L 16 117/62 97 11/18/19 03:53 37.4 C 66 16 122/63 97 11/17/19 23:15 37 C 70 16 119/72 98 11/17/19 19:33 37.0 C 75 16 120/75 96 11/17/19 15:20 36.3 C L 60 16 113/67 96 11/17/19 14:40 36.5 C 61 18 110/66 97 11/17/19 13:23 66 18 121/67 98 Pain Intensity Abdomen: Pain Intensity: 2 Transfer of Care Handoff Completed per policy Notes Mental Status: alert / awake / arousable Patient Amnestic to Procedure: Yes Nausea / Vomiting: adequately controlled Pain: adequately controlled Airway Patency, RR, SpO2: stable & adequate BP & HR: stable & adequate Hydration State: stable & adequate Anesthetic Complications: no major complications apparent and Pt Satisfied with anesthetic care
[2019-11-18] MEDS: LACTATED RINGER'S 1,000 ML IV SCH (13:17)
--- NOTE | 2019-11-18 13:30 | Operative Report (OR) ---
DATE OF OPERATION: 11/18/2019 PREOPERATIVE DIAGNOSES: Acute cholecystitis, cholelithiasis post stat ERCP. POSTOPERATIVE DIAGNOSES: Acute cholecystitis, cholelithiasis post stat ERCP. OPERATION: Laparoscopic cholecystectomy. SURGEON: Ranjith Sweeney MD. ANESTHESIA: General. ESTIMATED BLOOD LOSS: About 20 mL. FINDINGS: Significant inflammation of the gallbladder wall, gallbladder wall thickening, edema, confirmed diagnosis of acute cholecystitis. COMPLICATIONS: None. INDICATIONS FOR THE PROCEDURE: This is a 63-year-old female who was admitted to the hospital for abdominal pain and increased liver enzymes. The patient had ERCP done to remove the common bile duct stone and the patient is required to do laparoscopic cholecystectomy, possible open, possible cholangiogram. I did talk to the patient about the benefits, risks, alternate procedure. I indicated the risks may include but not limited to such as bleeding, infection, injury to common bile duct. The patient understands. She signed informed consent and I answered all questions. DETAILS OF PROCEDURE: We brought the patient to the OR, put the patient in the supine position. The patient received SCD on bilateral legs to prevent DVT. Also, patient received 400 mg of Cipro IV for prophylactic antibiotic. The patient received general anesthesia without difficulty. The abdomen was prepped and draped in routine sterile fashion. After timeout, I injected local anesthesia by using 1% lidocaine mixed with 0.5% Marcaine just above the umbilicus, then I made a small incision just above the umbilicus, opened fascia and opened peritoneum under direct vision, put a Gurpreet trocar in, connected to CO2 to create pneumoperitoneum, flow rate is 6 liters per minute, pressure not more than 14 mmHg. Once we got a nice pneumoperitoneum, we put the camera in, looked around the abdomen, which showed normal finding on the liver. However, the gallbladder showed significant gallbladder wall thickening, inflammation, and edema. Then, we put another two 5 mm trocars on the right upper quadrant and one 11 trocar on the epigastric area. Once all trocars in, we used a grasper to hold the base of the gallbladder, put in the direction to the diaphragm, another grasper to hold the pouch of gallbladder, put a lateral to expose the triangle of Calot. Cystic duct was identified and mobilized. Based on the cystic duct is a very short and enlarged about 0.8 cm, I chose 10 mm metal clip to clip on the proximal cystic duct x2, one on the distal cystic duct x1 and used a scissor for transection of cystic duct. Rechecked, no leak and no active bleeding. The cystic artery was identified and mobilized with two 5 mm metal clips on the proximal cystic artery, one on the distal cystic artery, then used a scissor for transection of the cystic artery. Rechecked, no active bleeding. Then we used the Bovie to take down gallbladder from the liver bed. Rechecked, no active bleeding, no bile leak from liver bed. Then, we removed gallbladder through the catch bag. Then, we reinserted Gurpreet trocar in, connected to CO2 to create pneumoperitoneum, again looked around the abdomen, which showed no active bleeding, no bile leak from the liver bed. Then we removed all trocars under direct vision. No active bleeding from the trocar sites. Pneumoperitoneum was released. Then, I closed the umbilical incision fascial layer by using #1 Vicryl [id number] x2, closed subcutaneous layer by using 2-0 Vicryl interruptedly, closed skin by using 4-0 Vicryl continuous running; closed the epigastric area incision by using #1 Vicryl, closed the fascia in [id number] x2 and subcutaneous layer by using 2-0 Vicryl interruptedly, closed skin by using 4-0 Vicryl interruptedly; closed another two 5 mm trocar site skin only by using 4-0 Vicryl. Then, we put the dressing on. The patient tolerated the procedure well. All instrument, needle and sponge count were correct x2 at the end of the case. The patient was transferred to recovery room in stable condition. Specimen was sent to pathology. I attest to the content of the Intraoperative Record and any orders documented therein. Any exception s are noted below.
--- NOTE | 2019-11-18 14:17 | Hospitalist Progress Note ---
Date of Service November 18, 2019 Assessment & Plan (1) Choledocholithiasis: No sepsis on admission GI consulted RE choledocholithiasis Pt is s/p ERCP w/choledocholithiasis removal, biliary sphincterectomy, placements of biliary and pancreatic stents (11/17/2019) Tolerated procedure well - trend LFTs, LFTs trending down this AM - KUB in 3-4 weeks to check for pancreatic stent migration (ordered under [facility] system) - Repeat ERCP in 2 month's time to remove biliary stent (GI schedulers will contact her) - Avoid NSAIDs or ASA 5 days after biliary sphincterectomy General surgery consulted Pt is now s/p lap cholecystectomy w/Dr. Sweeney earlier today (11/18/2019) Tolerated procedure well Monitor CBC, CMP Cont. clear liquid diet for now plan to advance as tolerated Bronchial asthma - stable disease, did not have to use inhaler in years - pt is in no resp. distress - will cont. to monitor DVT prophylaxis. SCDs Full code Admission and Anticipated Discharge Date Admission Date: November 16, 2019 Subjective Pt is s/p ERCP w/ choledocholithiasis removal, biliary sphincterectomy, placements of biliary and pancreatic stents (11/17/2019) as of yesterday. LFTs trending down this AM. Pt is sitting up in bed, in NAD, alert and oriented x3, now s/p lap cholecystectomy earlier today by Dr. Sweeney (11/18/2019). Currently denies any fevers, chills, chest pain, shortness of breath, she has mild epigastric and right upper quadrant abdominal pain. Denies any nausea or vomiting. However reports emesis this AM. Pt is on clear liquid diet, receiving IVF. Review of Systems Review of Systems: All systems reviewed & are unremarkable except as noted in HPI & below Constitutional: no fever and no chills Respiratory: no cough and no dyspnea Cardiovascular: no chest pain, no dyspnea on exertion, no palpitations and no edema Gastrointestinal: no abdominal pain, no nausea and no vomiting Physical Exam Physical Exam: GENERAL: Elderly female, appears younger than stated age, sitting up in bed, in no acute distress HEENT: Normocephalic, atraumatic, EOMI, PERRL, moist mucous membranes NECK : Supple, no tenderness CHEST : CTAB, no wheezing, rhonchi or crackles HEART : RRR, no obvious murmurs ABDOMEN: + bowel sounds, mild epigastric/ RUQ tenderness to palpation, soft, small surg. incisions covered w/ clean dry dressings EXTREMITIES : No LE swelling/tenderness, moves all extremities spontaneously SKIN: warm, dry, well perfused NEUROLOGIC : Alert and oriented x3, speech fluent, no facial asymmetry, moves all extremities spontaneously Results & Data Results & Data ([facility]) Vital Signs (Past 12 Hours) Vital Signs Temp Pulse Resp BP Pulse Ox 11/18/19 13:35 63 18 109/67 98 11/18/19 12:55 36.6 C 63 18 113/66 96 11/18/19 12:45 36.2 C L 65 20 118/63 99 11/18/19 12:30 36.2 C L 65 21 118/59 L 100 11/18/19 12:20 71 24 123/66 99 11/18/19 12:10 74 20 124/66 99 11/18/19 12:00 36.3 C L 78 19 117/63 99 11/18/19 09:05 37.3 C 56 L 18 109/61 98 11/18/19 07:36 37.2 C 58 L 16 117/62 97 11/18/19 03:53 37.4 C 66 16 122/63 97 Laboratory Results 11/18/19 11/18/19 11/18/19 Range/Units 06:33 06:33 06:33 WBC (4.8-10.8) K/uL RBC (4.2-5.4) M/uL Hgb (12.0-16.0) g/dL Hct (37-47) % MCV (80-100) fL MCH (25-34) pg MCHC (32-36) g/dL RDW Std Deviation (36.4-46.3) fL RDW Coeff of Frank (11.5-14.5) % Plt Count (130-400) K/uL MPV (7.4-10.4) fL PT 10.9 (9.0-12.0) Seconds INR 1.0 (0.9-1.1) Sodium 142 (136-145) mmol/L Potassium 3.9 (3.5-5.1) mmol/L Chloride 109 H (98-107) mmol/L Carbon Dioxide 28 (21-32) mmol/L Anion Gap 5.0 (3-11) BUN 7 (7-18) mg/dl Creatinine 0.64 (0.6-1.2) mg/dl Est Cr Clr Drug Dosing 66.1 ml/min Est GFR ( Amer) 108.5 Est GFR (Non-Af Amer) 93.6 BUN/Creatinine Ratio 11.4 (10-20) Glucose 92 (70-99) mg/dl Calcium 8.7 (8.5-10.1) mg/dl Phosphorus 3.5 (2.5-4.9) mg/dl Magnesium 1.9 (1.8-2.4) mg/dl Total Bilirubin 0.6 (0.2-1) mg/dl Direct Bilirubin 0.2 (0-0.2) mg/dl AST 194 H (15-37) U/L ALT 497 H (12-78) U/L Alkaline Phosphatase 128 H (45-117) U/L Total Protein 6.2 L (6.4-8.2) gm/dl Albumin 3.2 L (3.4-5.0) gm/dl 11/18/19 Range/Units 06:33 WBC 9.55 (4.8-10.8) K/uL RBC 4.34 (4.2-5.4) M/uL Hgb 12.4 (12.0-16.0) g/dL Hct 35.4 L (37-47) % MCV 81.6 (80-100) fL MCH 28.6 (25-34) pg MCHC 35.0 (32-36) g/dL RDW Std Deviation 43.5 (36.4-46.3) fL RDW Coeff of Frank 14.5 (11.5-14.5) % Plt Count 306 (130-400) K/uL MPV 9.6 (7.4-10.4) fL PT (9.0-12.0) Seconds INR (0.9-1.1) Sodium (136-145) mmol/L Potassium (3.5-5.1) mmol/L Chloride (98-107) mmol/L Carbon Dioxide (21-32) mmol/L Anion Gap (3-11) BUN (7-18) mg/dl Creatinine (0.6-1.2) mg/dl Est Cr Clr Drug Dosing ml/min Est GFR ( Amer) Est GFR (Non-Af Amer) BUN/Creatinine Ratio (10-20) Glucose (70-99) mg/dl Calcium (8.5-10.1) mg/dl Phosphorus (2.5-4.9) mg/dl Magnesium (1.8-2.4) mg/dl Total Bilirubin (0.2-1) mg/dl Direct Bilirubin (0-0.2) mg/dl AST (15-37) U/L ALT (12-78) U/L Alkaline Phosphatase (45-117) U/L Total Protein (6.4-8.2) gm/dl Albumin (3.4-5.0) gm/dl Medications Administered Current Inpatient Medications Acetaminophen (Tylenol) 325 mg PO Q6H PRN PRN Reason: Mild Pain Stop: 12/16/19 22:42 Albuterol (Duoneb) 3 ml NEB Q2H PRN PRN Reason: Wheezing Stop: 12/16/19 22:52 Fluticasone Propionate (Flonase) 2 sprays NA DAILY [facility] Stop: 12/17/19 08:59 Last Admin: 11/18/19 09:21 Dose: Not Given Documented by: Promethazine HCl 12.5 mg/ (Sodium Chloride) 50.5 mls @ 202 mls/hr IV Q6H PRN PRN Reason: Nausea And Vomiting Stop: 12/16/19 22:42 Last Infusion: 11/18/19 02:29 Dose: Infused Documented by: Lactated Ringer's (Lr) 1,000 mls @ 80 mls/hr IV .[id number] [facility] Stop: 12/16/19 22:59 Last Admin: 11/18/19 13:17 Dose: 80 mls/hr Documented by: Ciprofloxacin (Cipro) 400 mg in 200 mls @ 100 mls/hr IV Q12H [facility] Stop: 11/27/19 10:59 Last Infusion: 11/18/19 13:03 Dose: Infused Documented by: Morphine Sulfate (Morphine Sulfate) 4 mg IV Q4H PRN PRN Reason: Pain Stop: 11/30/19 22:42 Multivitamins (Multivitamin Tab) 1 tab PO QAM [facility] Stop: 12/17/19 08:59 Last Admin: 11/18/19 07:56 Dose: Not Given Documented by: Tramadol HCl (Ultram) 25 - 50 mg PO Q4H PRN PRN Reason: Pain Stop: 12/16/19 22:42
[2019-11-19 07:08] LABS: Hematocrit (blood only) 33.9 % (37-47); Hemoglobin 11.9 g/dL (12.0-16.0); Mean Corpuscular Hemoglobin 28.7 pg (25-34); Mean Corpuscular Hgb Conc 35.1 g/dL (32-36); Mean Corpuscular Volume 81.7 fL (80-100); Platelet Count 289 K/uL (130-400); RDW Coefficient of Variation 14.9 % (11.5-14.5); RDW Standard Deviation 44.1 fL (36.4-46.3); Red Blood Count 4.15 M/uL (4.2-5.4); White Blood Count 8.17 K/uL (4.8-10.8)
[2019-11-19 07:41] LABS: Albumin Level 3.2 gm/dl (3.4-5.0); BUN Creatinine Ratio 9.3 (10-20); Calcium 8.9 mg/dl (8.5-10.1); Est GFR (African American) 93.9; Potassium 3.5 mmol/L (3.5-5.1)
[2019-11-19 07:44] LABS: Albumin Globulin Ratio 1.1 (0.9-2); Bilirubin,Total 0.6 mg/dl (0.2-1); Globulin 2.8 gm/dl (2.5-4.0); Total Protein 6.1 gm/dl (6.4-8.2)
--- NOTE | 2019-11-19 07:53 | Anesthesiology Progress Note ---
Date of Service November 19, 2019 Anesthesia Post Procedure Vital Signs Vital Signs: Temp Pulse Resp BP BP Pulse Ox 11/19/19 07:08 36.9 C 77 18 133/76 96 11/19/19 03:48 37.3 C 83 15 120/68 93 11/18/19 23:01 37.5 C 66 15 130/72 96 11/18/19 20:13 37.3 C 65 16 117/65 95 11/18/19 16:15 36.6 C 60 16 122/72 99 11/18/19 15:07 36.6 C 65 16 108/62 97 11/18/19 14:18 36.6 C 69 18 100/61 96 11/18/19 13:35 63 18 109/67 98 11/18/19 12:55 36.6 C 63 18 113/66 96 11/18/19 12:45 36.2 C L 65 20 118/63 99 11/18/19 12:30 36.2 C L 65 21 118/59 L 100 11/18/19 12:20 71 24 123/66 99 11/18/19 12:10 74 20 124/66 99 11/18/19 12:00 36.3 C L 78 19 117/63 99 11/18/19 09:05 37.3 C 56 L 18 109/61 98 Pain Intensity Abdomen: Pain Intensity: 2 Notes Mental Status: alert / awake / arousable and participated in evaluation Patient Amnestic to Procedure: Yes Nausea / Vomiting: adequately controlled Pain: adequately controlled Airway Patency, RR, SpO2: stable & adequate BP & HR: stable & adequate Hydration State: stable & adequate Anesthetic Complications: no major complications apparent and Pt Satisfied with anesthetic care
[2019-11-19] MEDS: FLUTICASONE PROPIONATE NA SPR 16 GM BTL SCH (08:43)
[2019-11-19] MEDS: MULTIVITAMIN TAB PO SCH (08:43)
--- NOTE | 2019-11-19 11:50 | Surgery Progress Note ---
Date of Service F/U S/P lap sarwat, pt is doing fine, no significant abdominal pain, she tolerated diet, no nausea, no vomiting, no fever, November 19, 2019 Assessment & Plan (1) Cholelithiasis: pt is a 63 year-old female who was admitted to hospital for choledocholithiasis, acute cholecystitis with cholelithiasis, IMP: S/P ERCP, choledocholithiasis, acute cholecystitis, , cholelithiasis, Plan, I recommend to do laparoscopic cholecystectomy, possible open or cholangiogram, at 11:40am 11/18/2019, D/W benefits, risks and alternatives of the surgery, the risks - infection, bleeding, injury CBD, pt understood, she agrees with the surgery, I answered all questions, clear diet now, NPO after MN, 11/19/2019 11:48am, doing fine, pt wants to go home today, the post-op care instruction was given, F/U me in 2- 3 weeks [phone] (2) Acute cholecystitis due to biliary calculus: Supervising Physician Co-Signing Physician Notes I performed a history and physical examination of the patient today, including specifically on physical exam - soft abdomen. I have discussed the patient's management with the advanced practitioner. Please refer to the nurse practitioner's note for the documented findings and plan of care. Patient with choledocholithiasis and suspected cholangitis. Urgent case. ERCP today. Subjective Pt is s/p ERCP w/ choledocholithiasis removal, biliary sphincterectomy, placements of biliary and pancreatic stents (11/17/2019) as of yesterday. LFTs trending down this AM. Pt is sitting up in bed, in NAD, alert and oriented x3, now s/p lap cholecystectomy earlier today by Dr. Sweeney (11/18/2019). Currently denies any fevers, chills, chest pain, shortness of breath, she has mild epigastric and right upper quadrant abdominal pain. Denies any nausea or vomiting. However reports emesis this AM. Pt is on clear liquid diet, receiving IVF. Review of Systems Constitutional: as per Subjective / HPI Eyes: as per Subjective / HPI Ear, Nose, Mouth, Throat: as per Subjective / HPI Respiratory: as per Subjective / HPI Cardiovascular: as per Subjective / HPI Gastrointestinal: as per Subjective / HPI gallstone Genitourinary: as per Subjective / HPI Musculoskeletal: as per Subjective / HPI Integumentary: as per Subjective / HPI Neurologic: as per Subjective / HPI Psychiatric: as per Subjective / HPI Endocrine: as per Subjective / HPI Hematologic / Lymphatic: as per Subjective / HPI Physical Exam Constitutional: WD/WN, vitals as above well developed and well nourished Eyes: PERRL, conjunctivae normal, anicteric sclerae ENMT: external ear and nose normal, oropharynx normal Neck: trachea midline, no thyromegaly Respiratory: normal respiratory effort, lungs clear to auscultation normal respiratory effort Cardiovascular: RRR, no murmur, no edema Rate/Rhythm: regular rate and regular rhythm Heart Sounds: normal S1 and normal S2 Gastrointestinal (Abdomen): normal bowel sounds, soft, nontender, no hepatosplenomegaly Percussion/Palpation: abdomen soft no distend, all dressing intact, no redness,b no drainage, BS +, mild incision pain, Musculoskeletal: no cyanosis or clubbing, extremities motor strength 5/5 Skin: no rashes, warm and dry Neurologic: patellar DTR's 2+ bilat, sensation intact Psychiatric: Orientation: alert and oriented x 3 Results & Data Vital Signs (Past 12 Hours) Vital Signs Temp Pulse Resp BP Pulse Ox 11/19/19 11:15 36.8 C 60 16 120/74 97 11/19/19 07:08 36.9 C 77 18 133/76 96 11/19/19 03:48 37.3 C 83 15 120/68 93
--- NOTE | 2019-11-19 12:09 | Discharge Summary (DS) ---
ADMITTING DIAGNOSES: Acute cholecystitis, choledocholithiasis, and cholelithiasis. DISCHARGE DIAGNOSES: Acute cholecystitis, choledocholithiasis, and cholelithiasis. OPERATION: Laparoscopic cholecystectomy by Dr. Ranjith Sweeney and ERCP by is Dr. Michelle Choe. DETAILS OF DISCHARGE SUMMARY: This is a 63-year-old female who was admitted to the hospital for abdominal pain. The patient had lab and study test diagnoses of acute cholecystitis with cholelithiasis and choledocholithiasis. The patient had ERCP done by the GI doctor on 11/17/2019 and followed that on 11/17, I did a laparoscopic cholecystectomy. The patient is doing fine. The patient tolerated clear diet. No significant abdominal pain, no nausea, no vomiting, no fever. The patient feels much better. PHYSICAL EXAMINATION: VITAL SIGNS: Temperature is 36.8, respiratory rate is 16, heart rate is 60, blood pressure 120/74, O2 saturation 97% on room air. GENERAL: The patient is alert, awake, oriented x3, in no distress. HEENT: Within normal limitation. NEUROLOGIC: Intact. NECK: No JVD. CHEST: Bilateral lung sounds clear. HEART: Normal S1, S2. No murmurs. ABDOMEN: Soft and no distention. All incision, dressing intact and no redness, no drainage, no distention. Bowel sounds positive. EXTREMITIES: No edema. LABORATORIES: Show WBC 8.1, hemoglobin 11.9. The patient's sodium 141, potassium 3.5. Total bilirubin is 0.6, AST is 105, ALT is 360. PLAN: The patient is doing fine. The patient wanted to go home today. I gave the patient postop care instructions. The patient understands. I will follow up the patient in 2-3 weeks.
[2019-11-19] MEDS: CIPROFLOXACIN / D5W 400 MG/200 ML BAG IV SCH (12:57)
--- NOTE | 2019-11-19 13:29 | Discharge Summary ---
"Date of Service November 19, 2019 Admission HPI Per Admitting Provider History obtained from patient and records. Medical history significant for cholelithiasis, asthma/allergic rhinitis. Last night close to midnight patient noted achy epigastric discomfort and increased abdominal distention with nausea, no emesis. Some chills as per patient. Urine noted to be very yellow. No chest pain, no S OB. In retrospect, patient recalls short-lived episode last month. Worsening symptoms today. Patient seen at [facility] emergency room. LFTs noted to be high. CT abdomen pelvis showed choledocholithiasis with CBD dilatation. Patient transferred to [facility] for GI services. 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 Admission Exam Per Admitting Provider GENERAL: Comfortable, pleasant, looks younger for stated age, no respiratory distress SKIN: Normal color, warm HEENT: [place] palpebral conjunctivae, no ptosis, dry buccal mucosa NECK : Supple, no tenderness CHEST : CTA, no tenderness HEART : RRR, no obvious murmurs ABDOMEN: Abdominal distention, minimal epigastric tenderness EXTREMITIES : No LE swelling/tenderness, no other conspicuous deformities noted NEUROLOGIC : Coherent, no facial asymmetry, no other gross focality Principal Diagnosis Choledocholithiasis Cholelithiasis Acute cholecystitis Status post laparoscopic cholecystectomy Discharge Exam Constitutional + well hydrated; no acute distress Eyes PERRL, conjunctivae normal, anicteric sclerae ENMT external ear and nose normal, oropharynx normal Respiratory normal respiratory effort, lungs clear to auscultation Cardiovascular RRR, no murmur, no edema Gastrointestinal (Abdomen) Inspection/Auscultation: abdomen normal to inspection and normal bowel sounds; abdomen not distended Percussion/Palpation: + abdomen tender (mild) and abdomen soft; no guarding Musculoskeletal no cyanosis or clubbing, extremities motor strength 5/5 Neurologic PERRL, EOMI, accommodation nl, no face palsy, no dysarthria Psychiatric A+Ox3, euthymic affect Discharge Data Allergies Allergy/AdvReac Type Severity Reaction Status Date / Time egg Allergy Unknown Verified 11/16/19 23:01 Penicillins Allergy Unknown Verified 11/16/19 23:01 tree and shrub pollen AdvReac Unknown Verified 11/16/19 23:02 Consultations 11/16/19 22:43 Consult Gastroenterology Routine 11/17/19 08:38 Consult General Surgery Routine Procedures Performed Operation Date: 11/17/19 07:00 Actual Procedures p Endoscopic Retrograde Cholangiopancreatogram(Not Applicable) - Michelle Sherman MD Operation Date: 11/18/19 11:40 Actual Procedures p Laparoscopic Cholecystectomy(Not Applicable) - Ranjith Sweeney MD Ordered Studies 11/17/19 [place] ERCP biliary ductal Routine Hospital Course (1) Acute cholecystitis due to biliary calculus: (2) Choledocholithiasis: Patient seen at [facility] emergency room LFT was noted to be high and CT Abd pelvis showed choledocholithiasis with CBD dilatation. Patient was transferred to [facility] for GI services GI consulted RE choledocholithiasis s/p ERCP w/choledocholithiasis removal, biliary sphincterectomy, placements of biliary and pancreatic stents (11/17/2019) Tolerated procedure well Liver enzymes trending down Was evaluated by surgeon and had lap cholecystectomy w/Dr. Sweeney yesterday (11/18/2019) Per OR note, gall bladder showed significant inflammation suggestive of acute cholecystitis. Patient is tolerating diet well. She is keen on being discharged today. Patient will need KUB in 3-4 weeks to check for pancreatic stent migration Repeat ERCP in 2 month's time to remove biliary stent (GI schedulers will contact her) Avoid NSAIDs or ASA 5 days after biliary sphincterectomy Total Time Total Time Spent Total Time Spent (In Minutes): 35 Total Time Includes: Examination of the Patient, Discharge Planning, Medication Reconciliation and Communication With Other Providers Discharge Plan Discharge Items Patient Disposition: Home - Self-Care Reason For Visit: GALLSTONES, ELEVATED LIVER EMZYMES Discharge Diagnosis: Choledocholithiasis Cholelithiasis Acute cholecystitis Status post laparoscopic cholecystectomy Activity: Resume your previous activity Non-emergency contact: Primary Care Provider, Surgeon and Book Canvasser Call non-emergency contact if: you have any medication questions Follow-up/Referrals: Nikki Fair [Nurse Practitioner] - 01/19/20 10:00 am José Antonio Chapman MD [Primary Care Provider] - 11/24/19 11:20 am Diet: Regular Ambulatory Orders: XR KUB/Abdomen 1 view (Routine) Timeframe: 3 Weeks Location: Determined by Patient Ordered By: Emily Hamilton Attending Provider Instructions: Ms. Olsen You came to the hospital complaining of abdominal pain and distention. Extensive evaluation revealed gallstones. You were evaluated by the internet project manager and surgeon. You had endoscopic retrograde cholangiopancreatography which showed biliary duct stone and stents were put in. You also had endoscopic cholecystectomy [removal of your gallbladder]. You need to follow-up with internet project manager in 2 months for removal of stents You need to get an abdominal x-ray in 3 weeks Please follow-up surgical instructions as detailed below. Avoid any aspirin or nonsteroidal anti-inflammatory medicine for 5 days. It was a pleasure taking care of you. Joy Slot Shift Manager Provider Instructions: Surgical discharge instructions: - no heavy lifting over 20 pounds for 3-4 weeks - no strenuous activity until cleared by surgeon - no submerging incisions underwater for 2 weeks. May shower in 3 days. Sponge bath and wash hair in meantime. After 3 days, Remove outer dressings and completely shower. Leave steri strips on incisions for 7 days from your surgery and then remove. - No dietary restrictions, increase diet slowly as tolerated. Certain foods may not agree with you - You may take extra strength Tylenol as needed for pain - 650 mg of Tylenol every 6 hours as needed - You will need a post-surgical follow-up in 2 weeks. We are currently doing telephone postoperative visits due to Coronavirus. Please call office at [phone] to schedule a postoperative phone call visit. Pending Studies at Discharge: Yes (gallbladder pathology, will be reviewed during postop phone call) Stand-Alone Forms: [facility] [employer], Opioid Pain Management, Smoking Cessation Medications and DC Order Prescriptions: New multivitamin [Daily-Eleanor] Tablet 1 tab PO QAM Qty: 7 RF: 0 oxycodone-acetaminophen [Percocet] 5-325 mg tablet 1 tab PO Q6H PRN (Reason: pain) Qty: 14 RF: 0 Discharge Orders: Discharge Order (Routine); Ordered 11/19/19 Ordered By: Ranjith Garcia/Other Patient Handouts: DVT Prevention Admission Data Admit Date/Time: 11/16/19 21:52 Attending Provider: Emily Aquino I. Admit Provider: Abelino Carmona Primary Care Provider: José Antonio Chapman Other Providers: Nikki Fair ; Ondina Lei ; Edwin Dennis ; Nova Rodriguez ; Claude Pittman ; Hussein Johnson ; Rema Hogue ; Jennifer Mcgregor ; Jeff Bowen ; Eladio Case ; Jesus Link ; Dunia Swan ; Shelbi Nunez ; Janie Loo ; Michelle Sherman ; Ranjith Sweeney ; Glen Alvarez Other Interventions: Discharge Summary Assessment (RN) Last Done: 11/19/19 13:20 DC Date/Time DO NOT enter until pt leaves facility: 11/19/19 14:39"
== END 2019-11-19 14:39 | disposition home or self-care (01) | DRG 419 ==
LOC: SUATTDRO 21:52 → 2S 21:52 → SUPCPDRO 21:52 → 3E 23:37